=== PATIENT | female | born 1945 | race Caucasian/White ===

== ENCOUNTER 2017-10-08 08:56 | Outpatient (CLI) | payer MEDICARE | END 2017-10-08 08:57 | disposition home or self-care (01) | LOC: BICMAMMO 08:56 | PROVIDERS: ATTEND Family Medicine | DX: Z85.3 Personal history of malignant neoplasm of breast; Z12.31 Encounter for screening mammogram for malignant neoplasm of breast | CPT/HCPCS: 77063; 77067 ==

== ENCOUNTER 2018-10-19 10:12 | Outpatient (CLI) | payer MEDICARE ==
--- NOTE | 2018-10-19 10:50 | MMO ---
Bilateral MAMMO Bilat Screen DDI+BIPIN. CLINICAL HISTORY: Patient is 73 years old and is seen for screening. The patient has no family history of breast cancer. 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 The patient has a history of right Lumpectomy in March, - malignant. VIEWS: The views performed were: bilateral craniocaudal with tomosynthesis and bilateral mediolateral oblique with tomosynthesis. FILMS COMPARED: The present examination has been compared to prior imaging studies performed at [facility] on 10/02/2014, 10/04/2015, 10/06/2016 and 10/08/2017, and at [facility] on 03/12/2010, 10/08/2010, 04/22/2011, 10/28/2011, 03/19/2012 and 09/07/2012. MAMMOGRAM FINDINGS: There are scattered fibroglandular densities. There is a stable area of architectural distortion with associated post-surgical scar seen in the right breast. There are no suspicious masses, suspicious calcifications, or new areas of architectural distortion. IMPRESSION: A ROUTINE FOLLOW-UP MAMMOGRAM IN 1 YEAR IS RECOMMENDED. THE RESULTS OF THIS EXAM WERE SENT TO THE PATIENT. ACR BI-RADS Category 2 - Benign finding MAMMOGRAPHY NOTE: 1. A negative mammogram report should not delay a biopsy if a dominant of clinically suspicious mass is present. 2. Approximately 10% to 15% of breast cancers are not detected by mammography. 3. Adenosis and dense breasts may obscure an underlying neoplasm.
== END 2018-10-19 10:13 | disposition home or self-care (01) ==
LOC: BICMAMMO 10:12
PROVIDERS: ATTEND Internal Medicine Hematology & Oncology
DX: Z12.31 Encounter for screening mammogram for malignant neoplasm of breast (principal); Z85.3 Personal history of malignant neoplasm of breast
CPT/HCPCS: 77063; 77067

== ENCOUNTER 2019-02-22 07:34 | Inpatient (IN) | payer MEDICARE ==
--- NOTE | 2019-02-22 08:05 | RAD ---
Exam: One view pelvis HISTORY: Patient is walking a dog this morning. Fall. Pain FINDINGS: Sacral ala are preserved. Intact bony pelvis. Suboptimal evaluation the left hip. Femoral n josé luis fracture cannot be excluded. Refer to separate left hip radiograph report for further detail. There does appear to be impacted left femoral neck fracture. Right hip is unremarkable IMPRESSION: Probable impacted left hip fracture. Refer to separate left hip radiograph report for fur ther detail
--- NOTE | 2019-02-22 08:06 | RAD ---
Exam:Left hip 2 views HISTORY: Fall. Pain. COMPARISON: None FINDINGS: Impacted fracture involving the left femoral neck. IMPRESSION: Impacted left femoral neck fracture.
[2019-02-22 08:56] LABS: #Eosinphils 0.1 thou/uL (0.0-0.7); #Lymphocytes 1.1 thou/uL (1.20-3.40); #Monocytes 0.5 thou/uL (0.11-0.59); #Neutrophils 6.3 thou/uL (1.40-6.50); %Basophils 0.3 % (0.0-1.0); %Eosinophils 1.2 % (0.0-10.0); %Lymphocytes 13.4 % (21.0-51.0); %Monocytes 5.9 % (0.0-10.0); %Neutrophils 79.2 % (42.0-75.0); Hemoglobin 13.3 g/dL (12.0-16.0); Mean Corpuscular Hemoglobin 29.5 pg (27.0-31.0); Mean Corpuscular Volume 89.1 fL (78.0-98.0); Mean Platelet Volume 8.6 fL (7.4-10.4); Platelet Count 215 thou/uL (130-400); RBC Distribution Width 12.4 % (11.5-14.5); Red Blood Cell (RBC) Count 4.51 mill/uL (4.20-5.40); White Blood Cell (WBC) Count 7.9 thou/uL (4.8-10.8)
[2019-02-22] MEDS ORDERED: CEFAZOLIN 2 GM in Premix Bag 1 BAG IVPB SCH (09:00)
[2019-02-22 09:22] LABS: ALT (SGPT) 16 U/L (8-55); AST (SGOT) 18 U/L (5-34); Alkaline Phosphatase 62 U/L (40-150); Anion Gap 12 mmol/L (10-20); BUN (Urea Nitrogen) 15 mg/dL (9.8-20.1); Bilirubin, Total 0.3 mg/dL (0.2-1.2); Calc. Creatinine Clearance 0 mL/min (70-130); Calcium 8.8 mg/dL (7.8-10.44); Carbon Dioxide 26 mmol/L (23-31); Chloride 104 mmol/L (98-107); Estimated GFR-MDRD 79; Globulin 3.1 g/dL (2.4-3.5); Glucose 96 mg/dL (83-110); Potassium 4.1 mmol/L (3.5-5.1); Protein, Total 7.1 g/dL (6.0-8.3); Sodium 138 mmol/L (136-145)
--- NOTE | 2019-02-22 09:51 | CON ---
DATE OF CONSULTATION: 02/22/2019 This is Nettie Loo PA-C dictating a report for Miguel Ruvalcaba MD. REQUESTING PHYSICIAN: Ferny Brown DO CONSULTING PHYSICIAN: Miguel Ruvalcaba MD REASON FOR CONSULTATION: Left hip fracture. HISTORY OF PRESENT ILLNESS: This is a 73-year-old female, who was an independent ambulator, was walking her dog this morning when she was tripped by the dog and fell landing on her left hip. She presented to the emergency department with complaints of left hip pain, worse with movement, relieved with rest, unable to weight bear. Denies any numbness or tingling. Denies any head injury or other injury at the time of her fall. Upon further workup in the emergency department, the patient was found to have an impacted left femoral neck fracture. We have been consulted for this reason. PAST MEDICAL HISTORY: The patient reports past medical history is significant for breast cancer on the right side, concussion in the 90s. She states she broke 3 ribs on the right side. PAST SURGICAL HISTORY: Lymph node surgery on the right side for breast cancer. SOCIAL HISTORY: The patient lives at home with her daughter. She is an independent ambulator. She is very active 73-year-old female. Denies any history of alcohol use, tobacco use, or no illicit drug use. FAMILY HISTORY: Reviewed and noncontributory. 10-point review of systems conducted and otherwise negative except for stated above. PHYSICAL EXAMINATION: VITAL SIGNS: Blood pressure is 153/63, pulse is 86, respiratory rate of 18, temperature of 98.0, and O2 saturation is 98% on room air. GENERAL: The patient is awake and alert. She is in no apparent distress. She is lying supine in the ER at this time. Her daughter is present at bedside. She is pleasant and cooperative with exam today. HEENT: Head is normocephalic and atraumatic. NECK: Supple. Trachea midline. Breathing is nonlabored. EXTREMITIES: Evaluation of all 4 extremities shows that she has active movement in both ankles and toes of both lower extremities. She has pain with any movement of the left lower extremity. There is no noticeable shortening or external rotation. Examination of the left hip and thigh shows skin to be intact. No ecchymosis. No lesions to the skin. Distal neurovascular status intact in the left lower extremity. Other 3 extremities evaluated. No obvious injuries or deformities are noted. She is able to move all 3 other extremities at this time. RADIOGRAPHIC FINDINGS: Including 2 views of the left hip demonstrate a subcapital femoral neck fracture, which appears impacted. Pelvis x-ray shows the same. No acute findings in the right hip. ASSESSMENT: Left femoral neck fracture. PLAN: The patient overall is healthy. She is not on any anticoagulant. She has been n.p.o. since 6 a.m. this morning. We would like to go forward with a left hip hemiarthroplasty this afternoon. Risks, benefits, and further details of the surgery discussed at length with the patient and her daughter at bedside. They are amenable to this plan of care and understand the risks and benefits involved with surgery. She will remain n.p.o. She will be admitted to the Trauma Service. We will plan to proceed with surgery this afternoon. Postoperatively, she will be admitted to [place] [id number] Surgical Floor, where she will work with physical and occupational therapist. Family state they are considering rehab or possibly taking her home with family and outpatient physical therapy. Job ID: [id number]
[2019-02-22] MEDS ORDERED: Ondansetron PF 4 MG/2 ML Vial IVP PRN (10:06)
[2019-02-22] MEDS ORDERED: Morphine 4 MG/ML VIAL SLOW IVP PRN (10:06)
[2019-02-22] MEDS ORDERED: Ondansetron ODT 4 MG TAB PO PRN (10:06)
[2019-02-22] MEDS ORDERED: hydrALAZINE 20 MG/ML VIAL SLOW IVP PRN (10:06)
[2019-02-22] MEDS ORDERED: Dextrose 5% in Water 1,000 ML IV PRN (10:06)
[2019-02-22] MEDS ORDERED: Acetaminophen 1,000 MG in Premix Bag 1 BAG IVPB SCH (10:06)
[2019-02-22] MEDS ORDERED: Dextrose 50% Abboject 50 ML SYRINGE SLOW IVP PRN (10:06)
--- NOTE | 2019-02-22 12:55 | HP ---
This is Oracio Light PA-C dictating a report for Savage Estela Owens DO. REQUESTING PHYSICIAN: Dr. Brown. CONSULTATIONS: Orthopedics, Dr. Ruvalcaba. 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 She denies loss of consciousness. She attempted to be brought to the ER by POV, but due to pain, was unable to, so her daughter called 911 and she was brought to the emergency department by ground EMS, where she underwent evaluation and examination and was noted to have a left femoral neck fracture, at which time, we were asked to evaluate the patient for admission and obtain Orthopedics consultation. ALLERGIES: NONE. CURRENT MEDICATIONS: None. The patient takes [id number] vitamins and calcium supplement only. PAST MEDICAL HISTORY: Right breast cancer treated with lumpectomy. PAST SURGICAL HISTORY: Right lumpectomy, right lymph node surgery, and hysterectomy. SOCIAL HISTORY: The patient lives at home with family. She denies drug, tobacco, or alcohol use. The patient is very active to include going to the gym and doing aerobics. She ambulates independently. REVIEW OF SYSTEMS: Ten-point review of systems is negative except as otherwise stated. PHYSICAL EXAMINATION: VITAL SIGNS: Blood pressure 152/82, heart rate 85, respirations 17, oxygen saturation is 96% on room air, and temperature is 98.0. GENERAL: The patient is resting comfortably in bed. She is awake, alert, and oriented x3. Consuelo Coma Scale is 15. HEENT: Head is normocephalic, atraumatic. Eyes; extraocular motions intact. PERRLA bilaterally. Ears are atraumatic without discharge. Nose is atraumatic without discharge. Oropharynx is clear. NECK: Nontender. Trachea is midline. No JVD. CHEST: Clear to auscultation with good inspiratory and expiratory effort. HEART: Regular rate and rhythm. ABDOMEN: Soft, flat, nontender with active bowel sounds. PELVIS: Stable with tenderness to palpation to the left hip consistent with her fracture. EXTREMITIES: Neurovascularly intact x4. Back by report is atraumatic and nontender. LABORATORY FINDINGS: White blood cell count 7.9, hemoglobin 13.3, hematocrit 40.2, and platelets 215. Sodium 138, potassium 4.1, chloride 104, CO2 of 26, BUN 15, creatinine 0.73, and glucose 96. LFTs are unremarkable. EKG shows a normal sinus rhythm with a rate of 86. RADIOGRAPHIC REPORTS: AP pelvis shows a probable impacted left hip fracture. Views of the left hip show an impacted left femoral neck fracture. ASSESSMENT AND PLAN: 1. Status post ground level fall. 2. Left femoral neck fracture. 3. Pain associated to above. PLAN: Plan will be to admit the patient to the surgical floor. She will remain n.p.o. per discussion with Orthopedics. They plan on taking her to the operating room today to undergo surgical repair. Postoperatively, we will have her work with Physical and Occupational Therapy, pain control, pulmonary toilet, gastritis and mechanical VTE prophylaxis. The evaluation, examination, laboratory, and radiographic findings were discussed with Dr. Owens at the time of dictation. Also, the patient was evaluated in the emergency department by Orthopedics. Job ID: [id number]
[2019-02-22] MEDS ORDERED: Esmolol 100 MG/10 ML VIAL ONE (13:35)
[2019-02-22] MEDS ORDERED: Glycopyrrolate 0.2 MG/ML 5 ML SYRINGE ONE (13:35)
[2019-02-22] MEDS ORDERED: PROPOFOL 200 MG/20 ML VIAL ONE (13:35)
[2019-02-22] MEDS ORDERED: Rocuronium Bromide 10 MG/ML (10ML VIAL) ONE (13:35)
[2019-02-22] MEDS ORDERED: Lidocaine 1% PF 5 ML VIAL ONE (13:35)
[2019-02-22] MEDS ORDERED: Dexamethasone 20 MG/5 ML VIAL ONE (13:35)
[2019-02-22] MEDS ORDERED: PHENYLEPHRINE-NS 100 MCG/ML 10 ML SYRINGE ONE (13:35)
[2019-02-22] MEDS ORDERED: Ondansetron PF 4 MG/2 ML Vial ONE (13:35)
[2019-02-22] MEDS ORDERED: Promethazine HCl 25 MG/ML VIAL SLOW IVP PRN (15:50)
[2019-02-22] MEDS ORDERED: Meperidine HCl/PF 25 MG/ML VIAL SLOW IVP PRN (15:50)
[2019-02-22] MEDS ORDERED: HYDROmorphone 2 MG/ML VIAL SLOW IVP PRN (15:50)
[2019-02-22] MEDS ORDERED: Promethazine HCl 25 MG/ML VIAL IM PRN (15:50)
[2019-02-22] MEDS ORDERED: PACU-Morphine 4MG/ML VIAL SLOW IVP PRN (15:50)
--- NOTE | 2019-02-22 15:57 | RAD ---
AP PELVIS: 02/22/19 HISTORY: Follow-up left hip hemiarthroplasty. FINDINGS/IMPRESSION: Postoperative changes are seen in the left hip. A left hip prosthesis is in place. Components appear in adequate position and alignment. Pelvis otherwise unremarkable. POS: [facility]
--- NOTE | 2019-02-22 15:59 | RAD ---
LEFT HIP: One view. 02/22/19 HISTORY: Postop hemiarthroplasty. FINDINGS/IMPRESSION: Postop changes are noted. A left hip prosthesis has been placed. Components appear in adequate positi on and alignment. POS: [facility]
[2019-02-22] MEDS ORDERED: traMADol HCl 50 MG TAB PO PRN ×2 (17:25)
[2019-02-22] MEDS ORDERED: Cyclobenzaprine 10 MG TAB PO PRN (17:25)
[2019-02-22] MEDS ORDERED: Melatonin 3 MG TAB PO PRN (17:25)
[2019-02-22] MEDS ORDERED: Ibuprofen 800 MG TAB PO SCH (17:30)
[2019-02-22] MEDS ORDERED: Acetaminophen 500 MG TAB PO SCH (18:00)
[2019-02-22 20:28] VITALS: BMI 21.7
[2019-02-22] MEDS: Ketorolac Tromethamine 30 MG/ML VIAL IVP SCH ×2 (20:54→22:30)
[2019-02-22] MEDS: Famotidine 20 MG TAB PO SCH (20:54)
[2019-02-22] MEDS: Sodium Chloride 0.9% 1,000 ML IV SCH ×2 (21:57→22:29)
[2019-02-22] MEDS: CEFAZOLIN 2 GM in Premix Bag 1 BAG IVPB SCH (22:10)
--- NOTE | 2019-02-22 22:51 | PRG ---
DATE OF SERVICE: 02/22/2019 SUBJECTIVE: Ms. Villa is a 73-year-old female who sustained a ground level fall earlier today. She sustained left hip fracture. She underwent ORIF today with Dr. Ruvalcaba. She tolerated the operation well. She has been doing good regard to pain control. Her vitals have been stable. Her urination is adequate. She developed no fever or shortness of breath. See able to tolerate with regular diet. OBJECTIVE: GENERAL: The patient is lying down comfortable in bed with no sign of acute distress. VITAL SIGNS: Temperature 97.5, heart rate 73, respiratory rate 16, O2 saturation 97 on 2 L nasal, and blood pressure 128/77. LUNGS: Clear bilaterally. HEART: Regular rate and rhythm. ABDOMEN: Soft, nondistended. EXTREMITIES: Neurovascularly intact x4. Left hip dressing is clean, dry, intact. ASSESSMENT: 1. Status post ground level fall. 2. Left femoral neck fracture, postop ORIF of left femoral neck fracture, postop day 0. 3. Acute traumatic pain, controlled. PLAN: Continue supportive care. Continue DVT and gastritis prophylaxis, pulmonary toilet. The patient will work with PT and OT tomorrow. Rehab screening is ordered. relief worker will work with the patient on rehab facility placement tomorrow. [facility] ID: [id number] [facility]
[2019-02-23] MEDS: Ketorolac Tromethamine 30 MG/ML VIAL IVP SCH ×2 (02:56→08:31)
[2019-02-23] MEDS: Acetaminophen 500 MG TAB PO SCH ×4 (02:57→20:10)
[2019-02-23] MEDS: CEFAZOLIN 2 GM in Premix Bag 1 BAG IVPB SCH (04:59)
[2019-02-23 05:05] LABS: #Lymphocytes 0.9 thou/uL (1.20-3.40); #Neutrophils 9.2 thou/uL (1.40-6.50); %Basophils 0.1 % (0.0-1.0); %Eosinophils 0.1 % (0.0-10.0); %Monocytes 8.5 % (0.0-10.0); %Neutrophils 83.2 % (42.0-75.0); Hemoglobin 11.6 g/dL (12.0-16.0); Mean Corpuscular Hemoglobin 30.4 pg (27.0-31.0); Mean Corpuscular Volume 89.6 fL (78.0-98.0); Mean Platelet Volume 8.7 fL (7.4-10.4); Platelet Count 185 thou/uL (130-400); RBC Distribution Width 12.1 % (11.5-14.5); White Blood Cell (WBC) Count 11.1 thou/uL (4.8-10.8)
[2019-02-23 05:16] LABS: Phosphorus 4.2 mg/dL (2.3-4.7)
[2019-02-23 05:20] LABS: Anion Gap 10 mmol/L (10-20); BUN (Urea Nitrogen) 14 mg/dL (9.8-20.1); Calc. Creatinine Clearance 74 mL/min (70-130); Calcium 8.2 mg/dL (7.8-10.44); Carbon Dioxide 23 mmol/L (23-31); Chloride 104 mmol/L (98-107); Estimated GFR-MDRD 87; Glucose 118 mg/dL (83-110); Potassium 3.9 mmol/L (3.5-5.1); Sodium 133 mmol/L (136-145)
[2019-02-23] MEDS: Famotidine 20 MG TAB PO SCH ×2 (08:40→20:10)
[2019-02-23] MEDS ORDERED: Ibuprofen 600 MG TAB PO SCH (08:45)
--- NOTE | 2019-02-23 09:09 | RAD ---
PORTABLE AP CHEST X-RAY: HISTORY: Hip fracture. COMPARISON: None. FINDINGS: The cardiac silhouette and pulmonary vasculature are within normal limits. This exam was obtained in a shallow depth of inspiration with minimal atelectasis at each lung base, but the lungs are otherwi se clear. Surgical clips overly the right axillary region. The osseous structures have a normal leia earance. IMPRESSION: No acute cardiopulmonary process. POS: [facility]
--- NOTE | 2019-02-23 09:48 | OP ---
DATE OF PROCEDURE: 02/22/2019 PROCEDURE PERFORMED: Left hip hemiarthroplasty. PREOPERATIVE DIAGNOSIS: Left femoral neck fracture. POSTOPERATIVE DIAGNOSIS: Left femoral neck fracture. COMPLICATIONS: None. ESTIMATED BLOOD LOSS: 200 mL. ANESTHESIA: General. IMPLANTS: DePuy V[place] basic press-fit stem size 4 with a size 46 bipolar shell and a +5 femoral head. INDICATIONS FOR PROCEDURE: Ms. Villa is a 73-year-old female with a femoral neck fracture on the left hip. She was indicated for hemiarthroplasty of the hip to restore function and relieve pain. Risks have been reviewed in detail. She has elected to proceed with the operation. Goal of surgery is to promote mobilization and prevent complications of prolonged bed rest. DESCRIPTION OF PROCEDURE: Ms. Villa was identified in the preoperative holding area. Her correct extremity was marked. She was carried to the operating room. She was positioned supine. General anesthesia was induced. A multidisciplinary time-out was performed. The left lower extremity was prepped and draped in sterile fashion. We began the procedure with a posterior approach to the hip. We dissected down through the subcutaneous tissues to the fascia, which was opened. We exposed the short external rotators and these were subperiosteally divided from the proximal femur. We then performed a capsulotomy. At this point, we removed the broken femoral head. We performed an osteotomy of the femoral neck. We then cleared the acetabulum of bony fragments. Next, we prepared the femur. We entered the intramedullary canal followed by reaming and broaching. We broached to a size 4. This gave a good fit. We trialed off the size 4 broach. A +5 femoral head gave good rotation and stable hip with equal leg length. After removing the broach, we impacted our final stem. We then impacted our final bipolar shell and reduced the hip. We thoroughly irrigated and then closed with a #5 Ethibond suture to repair the short external rotators and capsule. This was followed by #2 Vicryl closure and layered skin closure. A sterile dressing was applied. The patient was taken to the recovery room in good condition without complication. Job ID: [id number]
[2019-02-23] MEDS: Aspirin 81 mg Enteric Coated Tablet PO SCH ×2 (09:50→20:10)
--- NOTE | 2019-02-23 11:54 | PRG ---
DATE OF SERVICE: 02/23/2019 SUBJECTIVE: Ms. Villa is a 73-year-old female, who sustained a ground level fall yesterday causing a fracture to the left femoral neck. The patient underwent ORIF of the left femoral neck yesterday. The patient states that she is only sore today and would like to go home. The patient was being seen by Physical Therapy while we were visiting the room and will be evaluated on how she does with pain management and activity today. The patient states she has not urinated this morning, but will when she gets up with physical therapy. The patient denies any pain elsewhere in her body and states that she was able to eat half of [employer] bar for breakfast. OBJECTIVE: VITAL SIGNS: Temp 98.1, heart rate 77, respiratory rate 16, oxygen saturation 92% on room air, blood pressure 122/70. GENERAL: The patient is awake, alert, lying in bed, in no acute distress. Oriented x3. CARDIAC: Regular rate and rhythm. No murmurs, gallops, or rubs. LUNGS: Clear to auscultation bilaterally. No wheezing, rales, or rhonchi. Nonlabored breathing. ABDOMEN: Soft, nontender to palpation, nondistended on exam. EXTREMITIES: The patient moves all 4 extremities. Appropriate tenderness to palpation over left hip. ASSESSMENT AND PLAN: 1. Ground level fall. 2. Left femoral neck fracture, status post open reduction and internal fixation of left femoral neck fracture. Postop day #1, continue aspirin b.i.d. 81 mg for DVT prophylaxis. The patient states she will be going home alone and will undergo a rehab screen today to see if she would be a good candidate for rehab before going home alone. The patient is agreeable to this plan. The patient is seen and evaluated by Dr. Owens on morning rounds. Dr. Owens agrees with care plan for this patient. Job ID: [id number] [facility]
[2019-02-23] MEDS: Ibuprofen 600 MG TAB PO SCH (16:24)
[2019-02-24] MEDS: Ibuprofen 600 MG TAB PO SCH ×3 (01:48→16:14)
[2019-02-24] MEDS: Acetaminophen 500 MG TAB PO SCH ×4 (03:41→20:35)
[2019-02-24] MEDS: Aspirin 81 mg Enteric Coated Tablet PO SCH ×2 (08:55→20:35)
[2019-02-24] MEDS: Famotidine 20 MG TAB PO SCH ×2 (08:56→20:35)
--- NOTE | 2019-02-24 09:08 | PRG ---
DATE OF SERVICE: 02/23/2019 SUBJECTIVE: Ms. Villa is a 73-year-old female, status post ground level fall , sustained a femoral neck fracture, underwent ORIF of left femoral neck fracture yesterday. Postoperatively, the patient is doing good. She is able to walk around the surgical floor with assistance today on PT section treatment. She tolerated her regular diet. Vital signs, stable. OBJECTIVE: GENERAL: The patient is lying down in bed comfortable. No acute distress. VITAL SIGNS: Stable. LUNGS: Clear bilaterally. HEART: Regular rate and rhythm. ABDOMEN: Soft, nondistended, normal bowel sounds. EXTREMITIES: Neurovascularly intact. Dressing of left hip is dry, clean, intact. ASSESSMENT: Ground level fall, left femoral neck fracture, status post open reduction and internal fixation of L femur neck. PLAN: Continue supportive care. Continue pain control. The patient is waiting for rehabilitation placement. Job ID: [id number] [facility]
--- NOTE | 2019-02-24 14:04 | PRG ---
DATE OF SERVICE: 02/24/2019 SUBJECTIVE: Ms. Villa is a 73-year-old female who sustained a left femoral neck fracture from a ground level fall. She underwent ORIF of left femoral fracture x2 days ago. The patient complains of minimal pain to the left hip. The patient was accepted to inpatient rehab, and states it would be a good idea for her to go to inpatient rehab because she would be going home alone with family to help her only on the weekends. The patient is agreeable to inpatient rehab plan as she needs this to improve her ability to perform her activities of daily living. She is a very active person and wants to get back to that baseline. OBJECTIVE: VITAL SIGNS: Temperature 98.3, heart rate 88, respiratory rate 16, oxygen saturation 95% on room air, and blood pressure 99/66. GENERAL: The patient is awake, alert, in no acute distress. Sitting in chair upon entry to the room. CARDIAC: Regular rate and rhythm. No murmurs, gallops, or rubs. LUNGS: Clear to auscultation bilaterally. No wheezing, rales, or rhonchi. Nonlabored breathing. ABDOMEN: Soft, nontender to palpation. Nondistended. Bowel sounds present. EXTREMITIES: The patient moves all 4 extremities. No lower extremity edema. ASSESSMENT AND PLAN: 1. Ground level fall. 2. Left femoral neck fracture, status post open reduction and internal fixation of the left hip, postop day #2. 3. Continue aspirin for deep venous thrombosis prophylaxis. The patient to go to inpatient rehab for further rehabilitation. The patient was seen and evaluated by Dr. Owens on morning rounds. He agrees with the care plan and disposition of this patient. Job ID: [id number] [facility]
--- NOTE | 2019-02-24 21:45 | PRG ---
DATE OF SERVICE: 02/24/2019 SUBJECTIVE: Mrs. Villa is a 73-year-old female, status post ground level fall, sustaining a femoral neck fracture, underwent ORIF of left femoral neck fracture, postop day 2. Postop, the patient is doing good. She is able to work with PT and OT, walking around the surgical floor with clerical dentist assistant. The patient's vital signs are stable. She developed no fever or shortness of breath. She tolerated regular diet. Urination, adequate. Bowel regimen is normal. ASSESSMENT: 1. Status post ground level fall. 2. Left femoral neck fracture, status post open reduction and internal fixation of left femoral neck fracture, postop day 2. PLAN: Continue supportive care. Continue pain control. Continue PT and OT. The patient is waiting for rehab placement. Job ID: [id number]
[2019-02-25] MEDS: Ibuprofen 600 MG TAB PO SCH ×3 (01:28→17:02)
[2019-02-25] MEDS: Acetaminophen 500 MG TAB PO SCH ×4 (02:52→21:05)
[2019-02-25] MEDS: Aspirin 81 mg Enteric Coated Tablet PO SCH ×2 (09:25→21:05)
--- NOTE | 2019-02-25 22:04 | PRG ---
DATE OF SERVICE: 02/25/2019 SUBJECTIVE: Ms. Villa is a 73-year-old female, status post ground level fall. She sustained left femoral neck fracture. Postop ORIF of left femoral neck fracture. Postop day 3, the patient has been doing good. She was able to work with PT/OT. She developed no fever or shortness of breath. Her urination is adequate. Bowel regimen is normal. Pain is well controlled. OBJECTIVE: GENERAL: The patient is lying down in bed comfortably, in no acute distress. VITAL SIGNS: Stable. LUNGS: Clear bilaterally. HEART: Regular rate and rhythm. ABDOMEN: Soft, nondistended. EXTREMITIES: Neurovascularly intact x4. NEUROLOGIC: No focal neurologic deficits. Left hip incision site dressing is clean, dry, and intact. ASSESSMENT: 1. Status post ground level fall. 2. Left femoral neck fracture, status post open reduction and internal fixation of left femoral neck fracture, postop day 3, stable. PLAN: Continue supportive care. Continue pain control. Continue PT/OT. The patient is awaiting for rehab placement. Job ID: [id number]
[2019-02-26] MEDS: Ibuprofen 600 MG TAB PO SCH ×2 (02:42→09:05)
[2019-02-26] MEDS: Acetaminophen 500 MG TAB PO SCH ×2 (02:42→09:05)
[2019-02-26] MEDS ORDERED: Calcium Carbonate 600 MG TAB PO SCH (09:00)
[2019-02-26] MEDS ORDERED: Multivitamin W/ Minerals 1 TAB PO SCH (09:00)
[2019-02-26] MEDS: Aspirin 81 mg Enteric Coated Tablet PO SCH (09:05)
[2019-02-26 11:34] VITALS: BP 115/70; TEMP 98
--- NOTE | 2019-02-26 11:44 | EKG ---
Test Reason : Blood Pressure : / mmHG Vent. Rate : 084 BPM Atrial Rate : 084 BPM P-R Int : 196 ms QRS Dur : 088 ms QT Int : 350 ms P-R-T Axes : 047 054 059 degrees QTc Int : 413 ms Normal sinus rhythm Normal ECG Confirmed by BRANDON ANTONIO ([id number]), features editor BLUE BOJORQUEZ ([id number]) on 02/26/2019 11:44:02 AM Referred By: MARISELA Confirmed By:BRANDON ANTONIO
--- NOTE | 2019-02-26 19:14 | DIS ---
DATE OF ADMISSION: 02/22/2019 DATE OF DISCHARGE: 02/26/2019 ADMISSION DIAGNOSES: 1. Status post ground level fall. 2. Left femoral neck fracture. 3. Pain associated to fracture. CONSULTATIONS: Orthopedics, Dr. Ruvalcaba. PROCEDURE: Left hip hemiarthroplasty. SUMMARY: The patient is a 73-year-old woman, who was knocked to the ground by her dog. She was brought to the emergency department where she underwent evaluation and examination and was noted to have the above injury. Due to her n.p.o. status, she was able to undergo her above procedure that same day of admission. She tolerated the procedure well. She began working with Physical and Occupational Therapy and due to her baseline health, she was able to progress quickly with them. At time of discharge to the custodial facility, she was continued to advance with physical and occupational therapy. Her pain was controlled. She was tolerating a diet. Her bowel function returned. She will follow up with Dr. Ruvalcaba in 10 to 14 days or sooner as needed. The patient may follow up with the Trauma Clinic as needed. Job ID: [id number]
== END 2019-02-26 12:44 | DRG 470 ==
LOC: ERS 07:34 → ERHOLD 10:10 → SURG A 17:43
PROVIDERS: ADMIT Surgery; ATTEND Surgery
PROC: 0SRS0JA Replacement of Left Hip Joint, Femoral Surface with Synthetic Substitute, Uncemented, Open Approach (ICD-10-PCS; principal; 2019-02-22)
DX: S72.012A Unspecified intracapsular fracture of left femur, initial encounter for closed fracture (principal); W54.1XXA Struck by dog, initial encounter; Z85.3 Personal history of malignant neoplasm of breast
CPT/HCPCS: 36415; 36416; 71045; 72170; 80048; 80053; 83735; 84100; 85025; 86850; 86900; 86901; 93005; J0690; J1100; J1885; J2001; J2405; J2704

== ENCOUNTER 2019-11-03 10:33 | Outpatient (CLI) | payer MEDICARE ==
--- NOTE | 2019-11-03 11:28 | MMO ---
Bilateral MAMMO Bilat Screen DDI+BIPIN. CLINICAL HISTORY: Patient is 74 years old and is seen for screening. The patient has no family history of breast cancer. 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 The patient has a history of right Lumpectomy in March, - malignant. VIEWS: The views performed were: bilateral craniocaudal with tomosynthesis and bilateral mediolateral oblique with tomosynthesis. FILMS COMPARED: The present examination has been compared to prior imaging studies performed at [facility] on 10/04/2015, 10/06/2016, 10/08/2017 and 10/19/2018. This study has been interpreted with the assistance of computer-aided detection. MAMMOGRAM FINDINGS: There is a stable area of architectural distortion with associated post-surgical scar seen in the right breast. There are no suspicious masses, suspicious calcifications, or new areas of architectural distortion. IMPRESSION: A ROUTINE FOLLOW-UP MAMMOGRAM IN 1 YEAR IS RECOMMENDED. THE RESULTS OF THIS EXAM WERE SENT TO THE PATIENT. ACR BI-RADS Category 2 - Benign finding MAMMOGRAPHY NOTE: 1. A negative mammogram report should not delay a biopsy if a dominant of clinically suspicious mass is present. 2. Approximately 10% to 15% of breast cancers are not detected by mammography. 3. Adenosis and dense breasts may obscure an underlying neoplasm. Reported by: Lian RAMAN Electonically Signed: [id number]
== END 2019-11-03 10:34 | disposition home or self-care (01) ==
LOC: BICMAMMO 10:33
PROVIDERS: ATTEND Internal Medicine Hematology & Oncology
DX: Z12.31 Encounter for screening mammogram for malignant neoplasm of breast (principal); Z85.3 Personal history of malignant neoplasm of breast; Z98.890 Other specified postprocedural states
CPT/HCPCS: 77063; 77067

== ENCOUNTER 2020-04-17 07:44 | Inpatient (IN) | payer MEDICARE, OTHER ==
[2020-04-17] MEDS ORDERED: Ketorolac Tromethamine 30 MG/ML VIAL ONE (09:43)
[2020-04-17] MEDS ORDERED: methylPREDNISolone Sod Succ/PF 125 MG/2 ML VIAL ONE (09:43)
[2020-04-17] MEDS ORDERED: diphenhydrAMINE 50 MG/ML VIAL ONE (09:43)
[2020-04-17] MEDS ORDERED: Famotidine/PF 20 mg/2ml Vial ONE (09:43)
[2020-04-17 10:08] LABS: #Lymphocytes 1.1 thou/uL (1.20-3.40); #Monocytes 0.8 thou/uL (0.11-0.59); %Basophils 0.2 % (0.0-1.0); %Eosinophils 0.3 % (0.0-10.0); %Lymphocytes 10.3 % (21.0-51.0); %Monocytes 6.9 % (0.0-10.0); %Neutrophils 82.4 % (42.0-75.0); Hemoglobin 14.6 g/dL (12.0-16.0); Mean Corpuscular HGB CONC 33.1 g/dL (32.0-36.0); Mean Corpuscular Hemoglobin 29.9 pg (27.0-31.0); Mean Corpuscular Volume 90.2 fL (78.0-98.0); Mean Platelet Volume 8.6 fL (7.4-10.4); Platelet Count 268 thou/uL (130-400); RBC Distribution Width 12.4 % (11.5-14.5); Red Blood Cell (RBC) Count 4.88 mill/uL (4.20-5.40); White Blood Cell (WBC) Count 10.9 thou/uL (4.8-10.8)
[2020-04-17] MEDS ORDERED: Lidocaine 1% (PF) 30 ML VIAL ONE ×2 (10:18→10:39)
[2020-04-17 10:35] LABS: ALT (SGPT) 25 U/L (8-55); AST (SGOT) 25 U/L (5-34); Alkaline Phosphatase 83 U/L (40-110); Anion Gap 13 mmol/L (10-20); BUN (Urea Nitrogen) 9 mg/dL (9.8-20.1); Bilirubin, Total 0.4 mg/dL (0.2-1.2); Calc. Creatinine Clearance 0 mL/min (70-130); Calcium 9.1 mg/dL (7.8-10.44); Carbon Dioxide 26 mmol/L (23-31); Chloride 102 mmol/L (98-107); Estimated GFR-MDRD 80; Globulin 4.4 g/dL (2.4-3.5); Glucose 118 mg/dL (83-110); Protein, Total 8.4 g/dL (6.0-8.3); Sodium 137 mmol/L (136-145)
--- NOTE | 2020-04-17 12:04 | CT ---
CT NECK SOFT TISSUES WITH CONTRAST: DATE: 04/17/2020. HISTORY: A 74-year-old female with right submandibular mass and swelling. COMPARISON: None. FINDINGS: The entire right parotid gland, both superficial and deep lobes, is enlarged and has heterogeneously abnormally strong enhancement. A single punctate 1 or 2 mm sialolith is noted at the posterior aspec t of the deep lobe of the right parotid gland. There is diffuse mural thickening of right Darrell's duct, with enhancement and surrounding fat stran ding. No calculus is identified in Darrell's duct. Fat stranding representing edema, with associated swelling, throughout the right parotid space, right lateral superficial subcutaneous fat, right parapharyngeal space, extending into the right submandib ular, right carotid, and retropharyngeal, spaces, extending across to the contralateral left carotid, space. Edema extends posteriorly to right posterior cervical space. Edema fluid thickens the right platysma muscle. The right palatine tonsil is asymmetrically enlarged, resulting in effacement of the right glossophar yngeal focus. Tortuous, retropharyngeal course of the right internal carotid artery. Multiple enhancing mildly enlarged reactive right cervical slightly enlarged lymph nodes at several l evels. Visualized lower portions of bilateral mastoid air cells and bilateral maxillary sinuses, are grossly clear. No consolidation or mass at lung apices. No destructive osseous lesion. No intrinsic inflammation of the submandibular glands. IMPRESSION: 1. Severe, acute sialadenitis involving right parotitis, with extensive edema spilling into multiple deep and superficial spaces of the right neck. 2. No drainable abscess. POS: PA
[2020-04-17] MEDS ORDERED: Ondansetron ODT 4 MG TAB SL PRN (14:00)
[2020-04-17] MEDS ORDERED: Ondansetron PF 4 MG/2 ML Vial IVP PRN (14:00)
[2020-04-17] MEDS ORDERED: Iopamidol-370 76% 500 ML 1 ML ONE (14:36)
[2020-04-17] MEDS ORDERED: Ampicillin/Sulbactam 3 GM in Sodium Chloride 0.9% 100 ML IVPB SCH (14:45)
[2020-04-17] MEDS ORDERED: Morphine 4 MG/ML VIAL SLOW IVP PRN (15:44)
--- NOTE | 2020-04-17 15:47 | PDOC.HHP ---
Hospitalist HPI - History of Present Illness Right facial swelling History of Present Illness: Terra Angel is a 74-year-old female with a past medical history of breast cancer status post lumpectomy who presented to the ED on 04/17/2024 right-sided facial swelling. Patient reports that approximately 1 week ago she noticed a small lump underneath her jaw on the right side. Over the past week that has b ecome increasingly painful and swollen. Patient saw urgent care initially for the problem a week ago who did not do any intervention at that time. Patient then saw her PCP a few days later and was prescribed Augmentin. Patient is taking Augmentin over the past 48 hours with worsening in her symptoms. Now she is having difficulty chewing, and the edema has spread down her neck and up into her cheek. Patient denies any numbness or tingling to the face. Denies any changes in vision, difficulty swallowing, difficulty breathing. Patient denies chest pain, shortness of breath, palpitations. No recent surgeries or dental work. In the emergency room initial vital signs 146/84, 103, 18, 99, 99% on room air. On exam patient found to have sialadenitis with salivary stone in the right cheek. Emergency room team attempted I&D removal of the stone without success. CT scan of head and neck showed severe acute sialadenitis with right parotitis with extensive edema spilling into the deep spaces of the right neck. ER team contacted ENT who recommended admission and IV antibiotics. WBC 10.9, H/H 14.6/44.0, BUN/CR 9/0.72. Hospitalist ROS - Review of Systems Constitutional: denies: fever, chills, sweats, weakness, malaise, other Eyes: denies: pain, vision change, conjunctivae inflammation, eyelid inflammation, redness, other ENT: reports: mouth pain, mouth swelling. denies: ear pain, ear discharge, nose pain, nose discharge, nose congestion, throat pain, throat swelling, other Respiratory: denies: cough, dry, shortness of breath, hemoptysis, SOB with excertion, pleuritic pain, sputum, wheezing, other Cardiovascular: denies: chest pain, palpitations, orthopnea, paroxysmal noc. dyspnea, edema, light headedness, other Gastrointestinal: denies: nausea, vomiting, abdominal pain, diarrhea, constipation, melena, hematochezia, other Genitourinary: denies: dysuria, frequency, incontinence, hematuria, retention, other Musculoskeletal: denies: neck pain, shoulder pain, arm pain, back pain, hand pain, leg pain, foot pain, other Skin: denies: rash, lesions, amy, bruising, other Neurological: denies: weakness, numbness, incoordination, change in speech, confusion, seizures, other - Medication Medications: Patient takes no home medications. She does follow-up with her primary care doctor Dr. Kumar regularly and is not on any medications other than a daily multivitamin. Patient has allergy to iodine contrast. Hospitalist History - Past Medical History Other Medical History: Medical history Breast cancer status post lumpectomy Right hip fracture and surgical repair - Family History Other Family History: No pertinent family medical history of cancer, heart disease, diabetes. - Social History Smoking Status: Never smoker Alcohol: reports: None Drugs: reports: none Living Situation: With Family Activity level: independent ambulation - Exam General Appearance: NAD, awake alert Eye: PERRL, anicteric sclera ENT - other findings: Significant right facial and jaw edema, calculus with surrounding erythema Neck - other findings: Significant swelling underneath right jaw Heart: RRR, no murmur, no gallops, no rubs, normal peripheral pulses Respiratory: CTAB, no wheezes, no rales, no ronchi, normal chest expansion, no tachypnea, normal percussion Gastrointestinal: soft, non-tender, non-distended, normal bowel sounds, no palpable masses, no hepatomegaly, no splenomegaly, no bruit Extremities: no cyanosis, no clubbing, no edema Skin: normal turgor, no lesions, no rashes Neurological: cranial nerve grossly intact, normal sensation to touch, no weakness, no focal deficits, no new deficit Musculoskeletal: normal tone, normal strength, no muscle wasting Psychiatric: normal affect, normal behavior, A&O x 3 Hospitalist Results - Labs Result Diagrams: 04/18/20 05:12 04/18/20 05:12 Lab results: WBC 10.9 thou/uL (4.8-10.8) H 04/17/20 09:59 Hgb 14.6 g/dL (12.0-16.0) 04/17/20 09:59 Hct 44.0 % (36.0-47.0) 04/17/20 09:59 MCV 90.2 fL (78.0-98.0) 04/17/20 09:59 Plt Count 268 thou/uL (130-400) 04/17/20 09:59 Neutrophils % 82.4 % (42.0-75.0) H 04/17/20 09:59 Sodium 137 mmol/L (136-145) 04/17/20 09:59 Potassium 4.0 mmol/L (3.5-5.1) 04/17/20 09:59 Chloride 102 mmol/L (98-107) 04/17/20 09:59 Carbon Dioxide 26 mmol/L (23-31) 04/17/20 09:59 BUN 9 mg/dL (9.8-20.1) L 04/17/20 09:59 Creatinine 0.72 mg/dL (0.6-1.1) 04/17/20 09:59 Glucose 118 mg/dL (83-110) H 04/17/20 09:59 Calcium 9.1 mg/dL (7.8-10.44) 04/17/20 09:59 Total Bilirubin 0.4 mg/dL (0.2-1.2) 04/17/20 09:59 AST 25 U/L (5-34) 04/17/20 09:59 ALT 25 U/L (8-55) 04/17/20 09:59 Alkaline Phosphatase 83 U/L (40-110) 04/17/20 09:59 Serum Total Protein 8.4 g/dL (6.0-8.3) H 04/17/20 09:59 Albumin 4.0 g/dL (3.4-4.8) 04/17/20 09:59 Hospitalist H&P A/P - Plan Plan: #Obstructive sialadenitis with infection 74-year-old female with no pertinent medical history presents with 1 week of worsening sialadenitis that failed outpatient therapy with Augmentin. Stone is obstructing and CT scan showed severe acute sialadenitis with right parotitis with extensive edema spilling into the deep spaces of the right neck. Removal of the stone was attempted by the ED team but was unsuccessful. ENT consulted who recommended treatment with IV antibiotics and admission. Patient afebrile with WBC of 10.9. No signs of SIRS or sepsis. No current concern for airway com promise. Pt received 1 dose of unasyn in the ED and prednisone prior to CT scan for contrast allergy. Plan: IV Flagyl, IV cefazolin -Probiotics -Lozenges -ENT consult if patient does not clinically improve with IV antibiotics Trend fever curve, WBC N.p.o. at midnight DVT prophylaxis: Lovenox Full code Case discussed with attending physician, Dr. Swan.
[2020-04-17 16:06] VITALS: BMI 22.6
[2020-04-17] MEDS: Lactated Ringer's 1,000 ML IV SCH (16:23)
[2020-04-17] MEDS: Cepastat Lozenges 1 LOZ PO SCH ×2 (19:54→22:18)
[2020-04-17] MEDS: metroNIDAZOLE 500 MG in Premix Bag 1 BAG IVPB SCH (21:13)
[2020-04-17] MEDS: CEFAZOLIN 1 GM in Sodium Chloride 0.9% 100 ML IVPB SCH (22:17)
[2020-04-18] MEDS: Cepastat Lozenges 1 LOZ PO SCH ×8 (00:46→17:28)
[2020-04-18] MEDS: Lactated Ringer's 1,000 ML IV SCH (00:47)
[2020-04-18] MEDS: Acetaminophen 325 MG TAB PO PRN ×2 (03:43→17:27)
[2020-04-18] MEDS: metroNIDAZOLE 500 MG in Premix Bag 1 BAG IVPB SCH ×3 (05:09→21:00)
[2020-04-18 05:44] LABS: #Basophils 0.1 thou/uL (0.0-0.2); #Lymphocytes 1.3 thou/uL (1.20-3.40); #Neutrophils 10.2 thou/uL (1.40-6.50); %Basophils 0.4 % (0.0-1.0); %Eosinophils 0.2 % (0.0-10.0); %Lymphocytes 10.5 % (21.0-51.0); %Monocytes 7.9 % (0.0-10.0); Hemoglobin 13.1 g/dL (12.0-16.0); Mean Corpuscular HGB CONC 33.2 g/dL (32.0-36.0); Mean Corpuscular Hemoglobin 30.1 pg (27.0-31.0); Mean Corpuscular Volume 90.8 fL (78.0-98.0); Mean Platelet Volume 8.9 fL (7.4-10.4); Platelet Count 265 thou/uL (130-400); RBC Distribution Width 12.6 % (11.5-14.5); Red Blood Cell (RBC) Count 4.36 mill/uL (4.20-5.40); White Blood Cell (WBC) Count 12.6 thou/uL (4.8-10.8)
[2020-04-18] MEDS: CEFAZOLIN 1 GM in Sodium Chloride 0.9% 100 ML IVPB SCH ×3 (06:10→22:08)
[2020-04-18 06:11] LABS: Anion Gap 11 mmol/L (10-20); BUN (Urea Nitrogen) 11 mg/dL (9.8-20.1); Calc. Creatinine Clearance 80 mL/min (70-130); Calcium 8.8 mg/dL (7.8-10.44); Carbon Dioxide 25 mmol/L (23-31); Chloride 106 mmol/L (98-107); Estimated GFR-MDRD Greater than 90; Glucose 99 mg/dL (83-110); Potassium 3.8 mmol/L (3.5-5.1); Sodium 138 mmol/L (136-145)
--- NOTE | 2020-04-18 09:07 | PDOC.HOSPP ---
- Subjective Encounter Date: 04/18/20 Encounter Time: 09:05 Subjective: Patient reports moderate pain overnight. Feels that her facial swelling is somewhat improved. Denies shortness of breath, difficulty swallowing. Denies chest pain, abdominal pain. Denies numbness, paresthesias, changes in vision. Chart and medications reviewed. - Objective Vital Signs & Weight: Vital Signs (12 hours) Temp Pulse Resp BP Pulse Ox 04/18/20 07:48 98.0 F 78 18 152/70 H 99 04/18/20 03:37 97.6 F 89 16 163/75 H 97 04/17/20 23:43 97.6 F 89 16 136/80 94 L Weight Weight 140 lb Result Diagrams: 04/18/20 05:12 04/18/20 05:12 Hospitalist ROS - Review of Systems Constitutional: denies: fever, chills, sweats, weakness, malaise, other Eyes: denies: vision change ENT: reports: mouth pain, mouth swelling. denies: ear pain, throat swelling Respiratory: denies: cough, dry, shortness of breath, hemoptysis, SOB with excertion, pleuritic pain, sputum, wheezing, other Cardiovascular: denies: chest pain, palpitations, orthopnea, paroxysmal noc. dyspnea, edema, light headedness, other Gastrointestinal: denies: nausea, vomiting, abdominal pain, diarrhea, co nstipation, melena, hematochezia, other Genitourinary: denies: dysuria, frequency, incontinence, hematuria, retention, other Skin: denies: rash, lesions, amy, bruising, other Neurological: denies: weakness, numbness, incoordination, change in speech, confusion, seizures, other - Medication Medications: Active Medications Generic Name Dose Route Start Last Admin Trade Name Freq PRN Reason Stop Dose Admin Acetaminophen 650 mg 04/17/20 15:55 04/18/20 03:43 Acetaminophen 325 Mg Tab PO 650 mg Q4H PRN Administration Headache/Fever/Mild Pain (1-3) Metronidazole 500 mg/ Device 100 mls @ 100 mls/hr 04/17/20 22:00 04/18/20 05:09 IVPB 100 mls Q8HR KHUSHI Administration Cefazolin Sodium 1 gm/ Sodium 100 mls @ 200 mls/hr 04/17/20 23:00 04/18/20 06:10 Chloride IVPB 100 mls 0700,1500,2300 KHUSHI Administration Throat Lozenges 1 kana 04/17/20 17:00 04/18/20 05:11 Cepastat Lozenges 1 Kana PO Not Given Q2H KHUSHI - Exam General Appearance: NAD, awake alert Eye: anicteric sclera ENT - other findings: Edema to right cheek and right jaw. Erythematous salivary duct Neck - other findings: Right sided edema Heart: RRR, no murmur, no gallops, no rubs, normal peripheral pulses Respiratory: CTAB, no wheezes, no rales, no ronchi, normal chest expansion, no tachypnea, normal percussion Gastrointestinal: soft, non-tender, non-distended, normal bowel sounds, no palpable masses, no hepatomegaly, no splenomegaly, no bruit Extremities: no cyanosis, no clubbing, no edema Skin: normal turgor, no lesions, no rashes Neurological: cranial nerve grossly intact, normal sensation to touch, no weakness, no focal deficits, no new deficit Musculoskeletal: normal tone, normal strength, no muscle wasting Psychiatric: normal affect, normal behavior, A&O x 3 Hosp A/P - Plan #Obstructive sialadenitis with infection 74-year-old female with no pertinent medical history presents with 1 week of worsening sialadenitis that failed outpatient therapy with Augmentin. Stone is obstructing and CT scan showed severe acute sialadenitis with right parotitis with extensive edema spilling into the deep spaces of the right neck. Removal of the stone was attempted by the ED team but was unsuccessful. ENT consulted who recommended treatment with IV antibiotics and admission. Patient afebrile with WBC of 10.9. No signs of SIRS or sepsis. No current concern for airway c ompromise. Pt received 1 dose of unasyn in the ED and also received steroids prior to CT scan for contrast allergy. This morning, facial and neck swelling has improved. Inner cheek with improving erythema. WBC increased to 12.6. Will continue current abx regimen and continue to monitor. Plan: IV Flagyl, IV cefazolin -Probiotics -Lozenges -ENT consult if patient does not clinically improve with IV antibiotics Trend fever curve, WBC Soft diet, advance as tolerated #Leukocytosis WBC increasing from 10.9 to 12.6. Will continue abx and continue to trend. Pt remains afebrile. DVT prophylaxis: Lovenox Full code Case discussed with attending physician, Dr. Swan.
[2020-04-18] MEDS: Saccharomyces boulardii 250 MG CAP PO SCH (13:43)
[2020-04-18] MEDS: Enoxaparin Sodium 40 MG/0.4 ML SYRINGE SC SCH (13:43)
[2020-04-18 16:06] LABS: SARS-CoV-2 MS2 Positive; SARS-CoV-2 N Gene Negative; SARS-CoV-2 S Gene Negative; SARS-CoV-2 by NAA Not Detected (NotDetected); SARS-CoV-2 orf1ab Negative
[2020-04-19] MEDS: Cepastat Lozenges 1 LOZ PO SCH ×3 (02:00→06:10)
[2020-04-19] MEDS: metroNIDAZOLE 500 MG in Premix Bag 1 BAG IVPB SCH (05:09)
[2020-04-19 05:53] LABS: #Basophils 0.1 thou/uL (0.0-0.2); #Eosinphils 0.1 thou/uL (0.0-0.7); #Lymphocytes 1.3 thou/uL (1.20-3.40); #Monocytes 0.7 thou/uL (0.11-0.59); #Neutrophils 6.9 thou/uL (1.40-6.50); %Basophils 0.9 % (0.0-1.0); %Eosinophils 0.8 % (0.0-10.0); %Lymphocytes 14.8 % (21.0-51.0); %Monocytes 7.6 % (0.0-10.0); %Neutrophils 75.9 % (42.0-75.0); Hemoglobin 13.4 g/dL (12.0-16.0); Mean Corpuscular HGB CONC 33.6 g/dL (32.0-36.0); Mean Corpuscular Volume 89.4 fL (78.0-98.0); Mean Platelet Volume 8.6 fL (7.4-10.4); Platelet Count 272 thou/uL (130-400); RBC Distribution Width 12.4 % (11.5-14.5); Red Blood Cell (RBC) Count 4.46 mill/uL (4.20-5.40); White Blood Cell (WBC) Count 9.1 thou/uL (4.8-10.8)
[2020-04-19 06:15] LABS: Anion Gap 11 mmol/L (10-20); BUN (Urea Nitrogen) 14 mg/dL (9.8-20.1); Calc. Creatinine Clearance 80 mL/min (70-130); Calcium 8.4 mg/dL (7.8-10.44); Carbon Dioxide 25 mmol/L (23-31); Chloride 104 mmol/L (98-107); Estimated GFR-MDRD Greater than 90; Glucose 102 mg/dL (83-110); Potassium 3.9 mmol/L (3.5-5.1); Sodium 136 mmol/L (136-145)
[2020-04-19] MEDS: CEFAZOLIN 1 GM in Sodium Chloride 0.9% 100 ML IVPB SCH (06:20)
[2020-04-19] MEDS: Acetaminophen 325 MG TAB PO PRN (06:37)
[2020-04-19] MEDS: Enoxaparin Sodium 40 MG/0.4 ML SYRINGE SC SCH (07:38)
[2020-04-19] MEDS: Saccharomyces boulardii 250 MG CAP PO SCH (07:38)
[2020-04-19 08:10] VITALS: BP 156/78; TEMP 98.3
--- NOTE | 2020-04-20 04:22 | DIS ---
DATE OF ADMISSION: 04/17/2020 DATE OF DISCHARGE: 04/19/2020 MEDICATIONS RECONCILED AT DISCHARGE: New medication: Augmentin 875 p.o. b.i.d. for 8 days. Medications continued: 1. Vitamin D. 2. Vitamins. FINAL DIAGNOSES: Sialadenitis/parotiditis. HOSPITAL COURSE: Ms. Terra Villa is a 74-year-old female with a past medical history of breast cancer, status post lumpectomy, who presented to the ED on 04/17/2020 for right-sided facial swelling. The patient initially reported that approximately one week prior to admission, she noticed a small lump underneath her jaw on the right side. Over the following week, that became increasingly painful and swollen. The patient was evaluated at Urgent Care initially for the problem, but they did not do any intervention at that time. A few days later, with worsening of symptoms, the patient saw her primary care provider and was prescribed Augmentin. The patient was taking Augmentin for 48 hours, but still experienced worsening in her symptoms, so she presented to the emergency room. On admission, she was having difficulty chewing and the edema had spread down into her neck and up into her cheek. At that time, she had no numbness or tingling to her face. She had no changes in vision or difficulty swallowing or difficulty breathing. She had no chest pain, shortness of breath, or palpitations and no recent surgeries or dental work. In the emergency room, her initial vital signs are 146/84, heart rate 103, respiratory rate 18, O2 saturation 99% on room air. On examination, the patient was found to have sialadenitis with a visible salivary stone in the right salivary gland in the right cheek. The emergency room team attempted an incision and drainage of the stone without success. A CT scan of the head and neck showed severe sialadenitis with a right parotiditis and extensive edema spilling into the deep spaces of the neck. The ER team had contacted ENT who recommended admission and IV antibiotics with re-consultation if the patient's clinical condition did not improve. Her initial laboratories drawn in the ED showed a white blood cell count of 10.9 and H and H of 14.6/44 and a BUN to creatinine ratio of 9:0.72. The patient was admitted to the hospitalist service for IV antibiotics. She was started on IV Flagyl and IV cefazolin. She was also given probiotics. The patient also did receive one dose of IV Unasyn in the ED and also prednisone prior to her CT scan for contrast allergy. The following day, the patient's clinical condition greatly improved with reduced edema and swelling. On the afternoon of April 18, the salivary stone was dislodged from the patient's right salivary gland. On examination, no stone was palpable. This morning, the patient's white blood cell count has continued to downtrend. She has had no fevers or chills. She reports her pain has much improved and she is now able to chew without difficulty. She also reports that her facial swelling has decreased significantly since the salivary stone is no longer obstructing. The patient was determined to be safe for discharge home. We will discharge the patient on Augmentin to complete a 10-day course, which she will continue for the next 8 days. This information was communicated to the patient, and the patient was also seen and evaluated by Dr. Swan, attending physician, who is in agreement with this assessment and plan. PHYSICAL EXAMINATION: VITAL SIGNS: On the day of discharge, vital signs, blood pressure 156/78, temperature 98.3, pulse 85, respiratory rate 18, O2 saturation 97% on room air. GENERAL APPEARANCE: No acute distress. Awake, alert. HEENT: Reduced rate teeth and jaw swelling. No redness or erythema. No induration. Dilated salivary duct with no stone. Manual palpation, no stone or obstruction felt. HEART: Rate and rhythm regular. No murmurs, rubs, or gallops. Normal peripheral pulses. RESPIRATORY: Clear to auscultation bilaterally. No wheezes, rales, or rhonchi. GI: Soft, nontender, nondistended with normoactive bowel sounds. No palpable masses. No hepatomegaly, splenomegaly, or bruits. EXTREMITIES: No cyanosis, clubbing, or edema. SKIN: Normal turgor. No lesions or rashes. NEUROLOGICAL: No cranial deficits. Normal sensation to touch. No focal deficits. MUSCULOSKELETAL: Normal strength and tone. PSYCHIATRIC: Normal affect. Normal behavior. A and O x3. DIET: The patient may resume normal diet. ACTIVITY: The patient may resume normal activity. CODE STATUS: The patient is full code. LABORATORY DATA: White blood cell count on admission was 10.9, increasing to 12.6 the next day and day of discharge 9.1; hemoglobin and hematocrit stable. Chemistries on day of admission, sodium 137, potassium 4.0, chloride 102, carbon dioxide 26, BUN 9, creatinine 0.72, glucose 118. AST/ALT 25/25, alkaline phosphatase 83. On day of discharge, sodium 136, potassium 3.9, chloride 104, CO2 of 25, BUN 14, creatinine 0.64. The patient was SARS-CoV2 negative. CT, head and neck showed severe acute sialadenitis involving the right parotiditis with extensive edema spilling into multiple deep and superficial spaces of the right neck with no drainable abscess. DISCHARGE DISPOSITION: To home. FOLLOWUP: The patient will need to follow up with her primary care provider in one week or sooner if should she have any new or worsening of symptoms. The patient demonstrated understanding and agreement with plan. Time spent discharge planning greater than 30 minutes. Case was discussed with attending physician, Dr. Swan. Job ID: [id number] [id number]
== END 2020-04-19 12:14 | disposition home or self-care (01) | DRG 156 ==
LOC: ERS 07:44 → SJJU 14:30
PROVIDERS: ADMIT Student in an Organized Health Care Education/Training Program; ATTEND Student in an Organized Health Care Education/Training Program
DX: K11.21 Acute sialoadenitis (principal); Z20.828 Contact with and (suspected) exposure to other viral communicable diseases; Z85.3 Personal history of malignant neoplasm of breast; Z98.890 Other specified postprocedural states; Z88.8 Allergy status to other drugs, medicaments and biological substances
CPT/HCPCS: 36415; 70491; 80048; 80053; 85025; 87635; J0295; J0690; J1200; J1650; J1885; J2001; J2930; J3490; Q9967; S0028; U0003

== ENCOUNTER 2020-11-06 09:12 | Outpatient (CLI) | payer MEDICARE | END 2020-11-06 09:13 | disposition home or self-care (01) | LOC: BICMAMMO 09:12 | PROVIDERS: ATTEND Internal Medicine Hematology & Oncology | DX: Z12.31 Encounter for screening mammogram for malignant neoplasm of breast (principal); Z85.3 Personal history of malignant neoplasm of breast | CPT/HCPCS: 77063; 77067 ==

== ENCOUNTER 2021-11-12 09:06 | Outpatient (CLI) | payer MEDICARE | END 2021-11-12 09:07 | disposition home or self-care (01) | LOC: BICMAMMO 09:06 | PROVIDERS: ATTEND Internal Medicine Hematology & Oncology | DX: Z12.31 Encounter for screening mammogram for malignant neoplasm of breast (principal); Z85.3 Personal history of malignant neoplasm of breast; Z98.890 Other specified postprocedural states | CPT/HCPCS: 77063; 77067 ==

== ENCOUNTER 2022-01-31 14:16 | Outpatient (CLI) | payer MEDICARE | END 2022-01-31 14:17 | disposition home or self-care (01) | LOC: BICRAD 14:16 | PROVIDERS: ATTEND Family Medicine | DX: R05.3 Chronic cough (principal) | CPT/HCPCS: 71046 ==

== ENCOUNTER 2022-10-25 09:47 | Emergency (ER) | payer MEDICARE ==
[2022-10-25 10:51] LABS: Bacteria/HPF 1+ HPF (None Seen); Bilirubin Negative (Negative); Blood, Urine Negative (Negative); Clarity Clear (Clear); Glucose, Urine (Dipstick) Normal (Negative); Ketone, Urine Negative (Negative); Leukocyte 250 Leu/uL (Negative); Nitrite Negative (Negative); Protein, Urine (Dipstick) Negative (Neg-Trace); RBC/HPF 0-3 HPF (0-3); Specific Gravity, Urine 1.004 (1.002-1.036); Squamous Epithelial 0-3 HPF (0-3); Urobilinogen Normal mg/dL (Less than 2)
== END 2022-10-25 11:36 | disposition home or self-care (01) ==
LOC: ERS 09:47
DX: N30.01 Acute cystitis with hematuria (principal)
CPT/HCPCS: 81003; 81015; 87086; 99284

== ENCOUNTER 2023-07-03 16:55 | Outpatient (CLI) | payer MEDICARE | END 2023-07-03 16:56 | disposition home or self-care (01) | LOC: RAD 16:55 | PROVIDERS: ATTEND Family Medicine | DX: S49.92XA Unspecified injury of left shoulder and upper arm, initial encounter (principal) ==

== ENCOUNTER 2023-12-01 08:51 | Outpatient (CLI) | payer MEDICARE | END 2023-12-01 08:52 | disposition home or self-care (01) | LOC: BICMAMMO 08:51 | PROVIDERS: ATTEND Internal Medicine Hematology & Oncology | DX: Z12.31 Encounter for screening mammogram for malignant neoplasm of breast (principal); Z85.3 Personal history of malignant neoplasm of breast; Z98.890 Other specified postprocedural states | CPT/HCPCS: 77063; 77067 ==